=== PATIENT | female | born 1925 | race African-American/Black ===

== ENCOUNTER 2016-10-22 20:03 | Emergency (ER) | payer MEDICARE, BC, OTHER ==
[~2016-10-22] VITALS: Ht 154.9 cm; Wt 45.0 kg
[~2016-10-22 20:03] MED LIST: ACET325 PO; AGGR20025 PO; AMPI500 PO; CALC1TAB26 PO; CARB0.5D16 EACH EYE; CARB25TA PO; DOCU1CAP39 PO; ENAB15TA PO; GLIP-157 PO; LISI-363 PO; MELA0.02 PO; METF500 PO; METO100T PO; METO50TA PO; MILKSUS5 PO; NIFE90 PO; NITR.4T TD
[2016-10-22 20:11] VITALS: BP 144/64; PULSE 82; TEMP 98.4; O2SAT 98
[2016-10-22] MEDS ORDERED: [UNRECOGNIZED DRUG - CODE] PO (20:47)
[2016-10-22] MEDS ORDERED: MELA5TAB15 PO (20:47)
[2016-10-22] MEDS ORDERED: AGGR20025 PO (20:47)
[2016-10-22] MEDS ORDERED: METO50TA PO (20:47)
[2016-10-22] MEDS ORDERED: METO100T PO (20:47)
[2016-10-22] MEDS ORDERED: METF850T PO (20:47)
[2016-10-22] MEDS ORDERED: GLIP5TAB8 PO (20:47)
[2016-10-22] MEDS ORDERED: CALC1TAB87 PO (20:47)
[2016-10-22] MEDS ORDERED: CARB25TA9 PO (20:47)
[2016-10-22] MEDS ORDERED: NIFE1TAB PO (20:47)
[2016-10-22] MEDS ORDERED: MILKSUS PO (20:47)
[2016-10-22] MEDS ORDERED: DOCU100C PO (20:47)
[2016-10-22] MEDS ORDERED: FENT12DI T-DERMAL (20:47)
[2016-10-22] MEDS ORDERED: TYLE325T PO (20:47)
--- NOTE | 2016-10-22 21:14 | PD ---
HPI Chief Complaint: Fall Time Seen by Provider: 20:42 Travel History International Travel<30 days: No Contact w/Intl Traveler<30days: No Traveled to known affect area: No History of Present Illness HPI 89-year-old Jessa female with history of end-stage Parkinson's, is brought into the ED via EMS status post fall from her bed landing on her left side. Patient is nonambulatory. She denies pain at this time. Patient is here with her daughter who requests a full workup ensure no fractures or other issue. Patient is not a DNR. Patient does not recall the fall, it was unwitnessed. She has no history of diabetes but was reported to have a blood sugar of over 400 via EMS. 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 She lives at a care home. She was found on the floor with a pillow between her legs. She normally sleeps with a pillow between her legs. She has no complaints of pain currently. She has allergies to codeine. PFSH Past Medical History Arthritis: Yes (OSTEOARTHRITIS ) Anxiety: Yes Depression: Yes Cardiac Catheterization: Yes Cardiovascular Problems: Yes Coronary Artery Disease: Yes Dementia: Yes Diabetes: Yes (TYPE 2) Patient Takes Glucophage: Yes (GLIPIZIDE ) Gastrointestinal Disorders: Yes (CONSTIPATION ) GERD: Yes Genitourinary: Yes (UTI , CHRONIC KIDNEY DSE ) Hypertension: Yes Medical other: Yes (DYSPHAGIA, HX OF FALLS, ARTHROPATHY ) Musculoskeletal: Yes (MYSCLE WEAKNESS) Neurologic: Yes Parkinson's Disease: Yes Psychiatric: Yes Tetanus Vaccination: > 5 Years Influenza Vaccination: No Menopausal: Yes Past Surgical History Cardiac Surgery: Yes Coronary Artery Bypass Graft: Yes Social History Alcohol Use: No Tobacco Use: No Substance Use: No Allergies-Medications (Allergen,Severity, Reaction): Coded Allergies: codeine (Unverified Allergy, Unknown, 10/12/16) Reported Meds & Prescriptions Reported Meds & Active Scripts Active Reported Nifedipine ER 24 HR (Nifedipine) 90 Mg Tab 90 Mg PO DAILY Metoprolol Tartrate 50 Mg Tab 50 Mg PO DAILY Metoprolol Tartrate 100 Mg Tab 100 Mg PO HS Metformin (Metformin HCl) 850 Mg Tab 850 Mg PO TIDPC With meals Melatonin 5 Mg Tab 3 Mg PO HS Milk of Magnesia Liq (Magnesium Hydroxide) 400 Mg/5 Ml Susp 40 Ml PO Q6H PRN Glipizide 5 Mg Tab 5 Mg PO DAILY Take 30 minutes before a meal Fentanyl Patch 72 HR (Fentanyl) 12 Mcg/Hr Patch 1 Patch T-DERMAL Q72H Remove old patch when new one placed. Docusate Sodium 100 Mg Cap 100 Mg PO HS Darifenacin ER 24 HR 15 Mg Tab 15 Mg PO DAILY Carbidopa-Levodopa 25-100 Mg Tab 1 Tab PO Q6HR Calcium 600 with Vitamin D (Calcium Carbonate-Cholecalciferol) 600-400 mg-Unit Tab 1 Tab PO DAILY Aggrenox (Dipyridamole/Aspirin) 200-25 Mg Cap 1 Cap PO DAILY Tylenol (Acetaminophen) 325 Mg Tab 325 Mg PO Q5H Review of Systems ROS Limitations: Clinical Condition Except as stated in HPI: all other systems reviewed are Neg General / Constitutional: No: Fever Eyes: No: Visual changes HENT: No: Headaches Cardiovascular: No: Chest Pain or Discomfort Respiratory: No: Shortness of Breath Gastrointestinal: No: Abdominal Pain Genitourinary: No: Dysuria Musculoskeletal: No: Pain Skin: No Rash Neurologic: No: Weakness Psychiatric: No: Depression Endocrine: No: Polydipsia Hematologic/Lymphatic: No: Easy Bruising Physical Exam Exam Limitations: Clinical Condition Narrative GENERAL: Patient appears parkinsonian with slow response and she has chronic contractions of upper and lower extremities. Patient is alert and responsive to verbal stimuli. SKIN: Warm and dry. Poor color. Poor turgor with tenting noted. Patient is noted to have a 4 cm diameter grade 2 decubitus ulcer to the coccyx region without significant signs of infection currently. Patient also has a 3 cm diameter grade 2 pressure ulcer to the right posterior lateral heel. Dressing is replaced. HEAD: Normocephalic. No signs of trauma. Nontender. EYES: Pupils equal and round. No scleral icterus. No injection or drainage. ENT: No nasal bleeding or discharge. Mucous membranes pink and dry.. NECK: Trachea midline. No JVD. No bony tenderness to palpation. Range of motion is limited secondary Parkinson's. CT ordered. CARDIOVASCULAR: Regular rate and rhythm. RESPIRATORY: No accessory muscle use. Clear to auscultation. Breath sounds equal bilaterally. No pain with palpation of the chest wall. GASTROINTESTINAL: Abdomen soft, non-tender, nondistended. Hepatic and splenic margins not palpable. MUSCULOSKELETAL: Extremities without clubbing, cyanosis, or edema. No obvious deformities. Patient has chronic contractures secondary to her Parkinson's. NEUROLOGICAL: Awake and alert. No obvious cranial nerve deficits. Motor grossly within normal limits. Normal PSYCHIATRIC: Appropriate mood and affect; insight and judgment normal. Data Data Last Documented VS Vital Signs Date Time Temp Pulse Resp B/P (MAP) Pulse Ox O2 Delivery O2 Flow Rate FiO2 10/22/16 20:11 98.4 82 144/64 (90) 98 Orders Orders Hip, Uni(Ap&Lat) W Ap Pelvis (10/22/16 21:02) Shoulder, Limited(2vws) (10/22/16 21:02) Chest, Single Ap (10/22/16 21:02) Ct Brain W/O Iv Contrast(Rout) (10/22/16 21:02) Ct Cerv Spine W/O Contrast (10/22/16 21:02) Complete Blood Count With Diff (10/22/16 21:02) Comprehensive Metabolic Panel (10/22/16 21:02) Prothrombin Time / Inr (Pt) (10/22/16 21:02) Act Partial Throm Time (Ptt) (10/22/16 21:02) Urinalysis - C+S If Indicated (10/22/16 21:02) Iv Access Insert/Monitor (10/22/16 21:02) Ecg Monitoring (10/22/16 21:02) Oximetry (10/22/16 21:02) Sodium Chloride 0.9% Flush (Ns Flush) (10/22/16 21:15) Electrocardiogram (10/22/16 21:02) Sodium Chlorid 0.9% 500 Ml Inj (Ns 500 M (10/22/16 21:15) Cath For Specimen (10/22/16 21:02) Blood Glucose (10/22/16 21:15) Labs Laboratory Tests Test 10/22/16 22:10 White Blood Count 8.1 TH/MM3 Red Blood Count 3.46 MIL/MM3 Hemoglobin 9.8 GM/DL Hematocrit 30.5 % Mean Corpuscular Volume 88.2 FL Mean Corpuscular Hemoglobin 28.2 PG Mean Corpuscular Hemoglobin Concent 32.0 % Red Cell Distribution Width 14.0 % Platelet Count 322 TH/MM3 Mean Platelet Volume 7.0 FL Neutrophils (%) (Auto) 62.8 % Lymphocytes (%) (Auto) 27.9 % Monocytes (%) (Auto) 8.4 % Eosinophils (%) (Auto) 0.6 % Basophils (%) (Auto) 0.3 % Neutrophils # (Auto) 5.1 TH/MM3 Lymphocytes # (Auto) 2.3 TH/MM3 Monocytes # (Auto) 0.7 TH/MM3 Eosinophils # (Auto) 0.0 TH/MM3 Basophils # (Auto) 0.0 TH/MM3 CBC Comment DIFF FINAL Differential Comment Blood Urea Nitrogen 24 MG/DL Creatinine 1.01 MG/DL Random Glucose 329 MG/DL Albumin 2.0 GM/DL Calcium Level 8.4 MG/DL Aspartate Amino Transf (AST/SGOT) 6 U/L Alanine Aminotransferase (ALT/SGPT) LESS THAN 6 U/L Sodium Level 138 MEQ/L Potassium Level 4.4 MEQ/L Chloride Level 102 MEQ/L Carbon Dioxide Level 28.8 MEQ/L Anion Gap 7 MEQ/L Estimat Glomerular Filtration Rate 62 ML/MIN MDM Medical Decision Making Medical Screen Exam Complete: Yes Emergency Medical Condition: Yes Medical Record Reviewed: Yes Differential Diagnosis Fall from bed. Parkinson's. Dehydration. Electrolyte imbalance. Possible fracture. Narrative Course Patient appears medically stable at time of exam. I discussed with the patient's daughter what she was looking for for treatment, and she would like everything done. Labs ordered including CBC, CMP, urinalysis. EKG is ordered as well as CT head, cervical spine, X-rays of the left shoulder, chest, and left hip and pelvis are ordered. IV access is obtained patient is given 500 mL normal saline bolus. Head CT is negative. X-ray of the chest, left shoulder, left hip and pelvis are all negative for acute findings per radiologist. Cervical spine CT is negative for acute findings per radiologist. 2300 hrs. patient's labs are still pending. Care of the patient is taken over by Dr. Villalpando, who will determine the final disposition of the patient. Condition: Stable Spencer Mckenna Oct 22, 2016 21:14
[2016-10-22] MEDS ORDERED: SODIUM CHLORIDE 0.9% FLUSH 10 ML FLUSH IV FLUSH PRN (21:15)
[2016-10-22] MEDS ORDERED: SODIUM CHLORID 0.9% 500 ML INJ 500 ML IV ONE (21:15)
--- NOTE | 2016-10-22 22:01 | RADRPT ---
EXAM DATE/TIME: 10/22/2016 21:46 [facility] COMPARISON: CT BRAIN W/O CONTRAST, October 05, 2015, 18:36. INDICATIONS : Patient fell out of bed, hitting head. RADIATION DOSE: 56.77 CTDIvol (mGy) MEDICAL HISTORY : Cardiovascular disease. Hypertension. Diabetes mellitus type 1.Parkinson's SURGICAL HISTORY : CABG ENCOUNTER: Initial ACUITY: 1 day PAIN SCALE: 5/10 LOCATION: cranial TECHNIQUE: Multiple contiguous axial images were obtained of the head. Using automated exposure control and adj ustment of the mA and/or kV according to patient size, radiation dose was kept as low as reasonably a chievable to obtain optimal diagnostic quality images. DICOM format image data is available electro nically for review and comparison. FINDINGS: CEREBRUM: The ventricles are normal for age. No evidence of midline shift, mass lesion, hemorrhage or acute in farction. No extra-axial fluid collections are seen. Chronic low attenuation again seen in the periv entricular white matter. There is atrophy. POSTERIOR FOSSA: The cerebellum and brainstem are intact. The 4th ventricle is midline. The cerebellopontine angle i s unremarkable. EXTRACRANIAL: The visualized portion of the orbits is intact. SKULL: The calvaria is intact. No evidence of skull fracture. CONCLUSION: No bleed or other acute intracranial abnormality. Ced Metcalf MD on October 22, 2016 at 21:59 Board Certified Radiologist. This report was verified electronically.
--- NOTE | 2016-10-22 22:10 | RADRPT ---
EXAM DATE/TIME: 10/22/2016 21:28 [facility] COMPARISON: No previous studies available for comparison. INDICATIONS : Left hip pain after patient fell from bed MEDICAL HISTORY : Multiple fractures to left hip and femur SURGICAL HISTORY : ORIF left hip and femur ENCOUNTER: Initial ACUITY: 1 day PAIN SCORE: 8/10 LOCATION: Left entire hip FINDINGS: Examination of the left hip was performed with AP Pelvis. The primary and secondary trabecular patte rn of the femoral neck is intact. The hip joint is of normal width without significant sclerosis or bony hypertrophy. The acetabulum is grossly intact. The patient has trochanteric screw and lateral plate of the proximal femur with multiple cerclage wir es. There is an intramedullary lorelei with for the rest of the femur. Old intertrochanteric and mid shaf t fractures of the left femur has healed in near-anatomic alignment. There is calcification of the visualized arteries. There is mild bilateral hip osteoarthritis. CONCLUSION: Old fractures and surgery of the left femur. No acute pelvic or femoral fracture. Ced Metcalf MD on October 22, 2016 at 22:06 Board Certified Radiologist. This report was verified electronically.
--- NOTE | 2016-10-22 22:11 | RADRPT ---
EXAM DATE/TIME: 10/22/2016 21:35 [facility] COMPARISON: No previous studies available for comparison. INDICATIONS : Left shoulder pain after patient fell out of bed today MEDICAL HISTORY : None. SURGICAL HISTORY : None. ENCOUNTER: Initial ACUITY: 1 day PAIN SCORE: 5/10 LOCATION: Left shoulder FINDINGS: There is no fracture or subluxation seen of the left shoulder. There is severe glenohumeral joint ost eoarthritis. Mild to moderate osteoarthritis seen of the acromioclavicular joint. Radiographic appearance of the soft tissues within normal limits. CONCLUSION: Intact left shoulder. Severe glenohumeral joint osteoarthritis. Ced Metcalf MD on October 22, 2016 at 22:08 Board Certified Radiologist. This report was verified electronically.
--- NOTE | 2016-10-22 22:12 | RADRPT ---
EXAM DATE/TIME: 10/22/2016 21:46 [facility] COMPARISON: CHEST SINGLE AP, October 05, 2015, 17:41. INDICATIONS : Trauma to chest after patient fell out of bed today MEDICAL HISTORY : None. SURGICAL HISTORY : None. ENCOUNTER: Initial ACUITY: 1 day PAIN SCORE: 0/10 LOCATION: Bilateral chest FINDINGS: A single view of the chest demonstrates the lungs to be symmetrically aerated without evidence of mas s, infiltrate or effusion. The cardiomediastinal contours are unremarkable. Osseous structures are intact. CONCLUSION: No evidence of acute cardiopulmonary disease. Ced Metcalf MD on October 22, 2016 at 22:09 Board Certified Radiologist. This report was verified electronically.
--- NOTE | 2016-10-22 22:16 | RADRPT ---
EXAM DATE/TIME: 10/22/2016 21:47 [facility] COMPARISON: No previous studies available for comparison. INDICATIONS : Patient fell out of bed. RADIATION DOSE: 30.12 CTDIvol (mGy) MEDICAL HISTORY : Cardiovascular disease. Hypertension. Diabetes mellitus type 1.Parkinson's SURGICAL HISTORY : CABG ENCOUNTER: Initial ACUITY: 1 day PAIN SCALE: 5/10 LOCATION: neck TECHNIQUE: Volumetric scanning of the cervical spine was performed. Multiplanar reconstructions in the sagittal, coronal and oblique axial planes were performed. Using automated exposure control and adjustment o f the mA and/or kV according to patient size, radiation dose was kept as low as reasonably achievable to obtain optimal diagnostic quality images. DICOM format image data is available electronically f or review and comparison. FINDINGS: Cervical spine is intact. Incidentally seen developmental discontinuity posteriorly of the C1 ring. T here are no subluxations. Vertebral bodies have normal height. Moderate osteoarthritis seen anteriorly at C1/C2. Broad posterior disc osteophyte complexes with moderate bilateral uncovertebral and facet osteoarthri tis seen at C3/C4-C6/C7. Disc space narrowing is mild at C3/C4 and C4/C5, severe at C5/C6 and C6/C7. No prevertebral soft tissue swelling. Enlarged thyroid with numerous heterogeneous nodules seen especially left lobe. Scattered macrocalcif ications are noted. CONCLUSION: 1. No fracture or subluxation of the cervical spine. 2. Multilevel degenerative changes as above. 3. 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 Outpatient thyroid ultrasound i s recommended. Ced Metcalf MD on October 22, 2016 at 22:10 Board Certified Radiologist. This report was verified electronically.
[2016-10-22 22:49] LABS: ALT (GPT) LESS THAN 6 U/L (10-53); ANION GAP 7 MEQ/L (5-15); AST (GOT) 6 U/L (15-37); AUTOMATED NEUTROPHIL # 5.1 TH/MM3 (1.8-7.7); BASOPHIL % 0.3 % (0.0-2.0); BICARBONATE 28.8 MEQ/L (21.0-32.0); BLOOD UREA NITROGEN 24 MG/DL (7-18); CHLORIDE 102 MEQ/L (98-107); EOSINOPHIL % 0.6 % (0.0-4.0); GLOMERULAR FILTRATION RATE 62 ML/MIN (>89); HEMATOCRIT 30.5 % (35.0-46.0); HEMO FLAGS DIFF FINAL; LYMPH % 27.9 % (9.0-44.0); LYMPHOCYTE # 2.3 TH/MM3 (1.0-4.8); MEAN CELL VOLUME 88.2 FL (80.0-100.0); MEAN CORPUSCULAR HEMOGLOBIN 28.2 PG (27.0-34.0); MONO % 8.4 % (0.0-8.0); NEUT % 62.8 % (16.0-70.0); PLATELET COUNT 322 TH/MM3 (150-450); POTASSIUM 4.4 MEQ/L (3.5-5.1); RED BLOOD COUNT 3.46 MIL/MM3 (4.00-5.30); SODIUM (NA) 138 MEQ/L (136-145); WHITE BLOOD COUNT 8.1 TH/MM3 (4.0-11.0)
[2016-10-22 22:51] LABS: ALKALINE PHOSPHATASE 73 U/L (45-117); TOTAL BILIRUBIN ADULT 0.2 MG/DL (0.2-1.0)
[2016-10-22 22:53] LABS: APTT (PATIENT) 25.9 SEC (24.3-30.1); PROTHROMBIN TIME - PATIENT 10.7 SEC (9.8-11.6)
[2016-10-23] LABS: BACTERIA, URINE MANY /hpf; BLOOD, URINE SMALL (NEG); COMMENT (UR) CULTURE INDICATED; CULTURE IF INDICATED CULTURE INDICATED; GLUCOSE,URINE 300 mg/dL (NEG); KETONE, URINE NEG (NEG); NITRITE,URINE NEG (NEG); PH, URINE 7.5 (5.0-8.5); URINE COLOR YELLOW (YELLW/STRAW)
[2016-10-23] MEDS ORDERED: BACT800T5 PO (00:21)
--- NOTE | 2016-10-23 00:21 | PD ---
Physical Exam Narrative Patient was seen by my insurance claims assistant and signed out to me. Data Data Last Documented VS Vital Signs Date Time Temp Pulse Resp B/P (MAP) Pulse Ox O2 Delivery O2 Flow Rate FiO2 10/22/16 20:11 98.4 82 144/64 (90) 98 Orders Orders Hip, Uni(Ap&Lat) W Ap Pelvis (10/22/16 21:02) Shoulder, Limited(2vws) (10/22/16 21:02) Chest, Single Ap (10/22/16 21:02) Ct Brain W/O Iv Contrast(Rout) (10/22/16 21:02) Ct Cerv Spine W/O Contrast (10/22/16 21:02) Complete Blood Count With Diff (10/22/16 21:02) Comprehensive Metabolic Panel (10/22/16 21:02) Prothrombin Time / Inr (Pt) (10/22/16 21:02) Act Partial Throm Time (Ptt) (10/22/16 21:02) Urinalysis - C+S If Indicated (10/22/16 21:02) Iv Access Insert/Monitor (10/22/16 21:02) Ecg Monitoring (10/22/16 21:02) Oximetry (10/22/16 21:02) Sodium Chloride 0.9% Flush (Ns Flush) (10/22/16 21:15) Electrocardiogram (10/22/16 21:02) Sodium Chlorid 0.9% 500 Ml Inj (Ns 500 M (10/22/16 21:15) Cath For Specimen (10/22/16 21:02) Blood Glucose (10/22/16 21:15) Urine Culture (10/22/16 23:26) Labs Laboratory Tests Test 10/22/16 22:10 10/22/16 23:26 White Blood Count 8.1 TH/MM3 Red Blood Count 3.46 MIL/MM3 Hemoglobin 9.8 GM/DL Hematocrit 30.5 % Mean Corpuscular Volume 88.2 FL Mean Corpuscular Hemoglobin 28.2 PG Mean Corpuscular Hemoglobin Concent 32.0 % Red Cell Distribution Width 14.0 % Platelet Count 322 TH/MM3 Mean Platelet Volume 7.0 FL Neutrophils (%) (Auto) 62.8 % Lymphocytes (%) (Auto) 27.9 % Monocytes (%) (Auto) 8.4 % Eosinophils (%) (Auto) 0.6 % Basophils (%) (Auto) 0.3 % Neutrophils # (Auto) 5.1 TH/MM3 Lymphocytes # (Auto) 2.3 TH/MM3 Monocytes # (Auto) 0.7 TH/MM3 Eosinophils # (Auto) 0.0 TH/MM3 Basophils # (Auto) 0.0 TH/MM3 CBC Comment DIFF FINAL Differential Comment Prothrombin Time 10.7 SEC Prothromb Time International Ratio 1.0 RATIO Activated Partial Thromboplast Time 25.9 SEC Blood Urea Nitrogen 24 MG/DL Creatinine 1.01 MG/DL Random Glucose 329 MG/DL Total Protein 6.9 GM/DL Albumin 2.0 GM/DL Calcium Level 8.4 MG/DL Alkaline Phosphatase 73 U/L Aspartate Amino Transf (AST/SGOT) 6 U/L Alanine Aminotransferase (ALT/SGPT) LESS THAN 6 U/L Total Bilirubin 0.2 MG/DL Sodium Level 138 MEQ/L Potassium Level 4.4 MEQ/L Chloride Level 102 MEQ/L Carbon Dioxide Level 28.8 MEQ/L Anion Gap 7 MEQ/L Estimat Glomerular Filtration Rate 62 ML/MIN Urine Color YELLOW Urine Turbidity CLOUDY Urine pH 7.5 Urine Specific [place] 1.017 Urine Protein 300 mg/dL Urine Glucose (UA) 300 mg/dL Urine Ketones NEG mg/dL Urine Occult Blood SMALL Urine Nitrite NEG Urine Bilirubin NEG Urine Urobilinogen 4.0 MG/DL Urine Leukocyte Esterase LARGE Urine RBC 13 /hpf Urine WBC /hpf Urine WBC Clumps FEW Urine Amorphous Sediment RARE Urine Bacteria MANY /hpf Microscopic Urinalysis Comment CULTURE INDICATED MDM Supervised Visit with RUDY: Yes Interpretation(s) 12:[address] scan of the cervical spine, brain, chest x-ray, x-ray of the hip and shoulder show no acute bony injury. CBC WBC 8.1. Hemoglobin 9.8 hematocrit 30.5. BUN 24. Creatinine 1.01. GFR 62. Glucose 329. UA positive with WBC RBC and bacteria. Narrative Course Normal saline solution 500 cc IV bolus. Rocephin 1 g IV given. Diagnosis Primary Impression: UTI (urinary tract infection) Qualified Codes: N30.00 - Acute cystitis without hematuria Additional Impression: Multiple contusions Patient Instructions: General Instructions Additional Instruction: Take medications as directed. Follow-up with personal physician. Head trauma instructions given. Return if worse. Med/Other Pt SpecificInfo: Prescription(s) given Scripts Sulfamethoxazole-Trimethoprim (Bactrim DS) 800-160 Mg Tab 1 TAB PO BID for Infection, #14 TAB 0 Refills Prov: Dillon Villalpando MD 10/23/16 Disposition: 03 DISCHARGE TO SNF Condition: Stable Dillon Villalpando MD Oct 23, 2016 00:21
[2016-10-23] MEDS ORDERED: cefTRIAXone INJ 1,000 MG in SODIUM CHLORIDE 0.9% INJ 100 ML IV ONE (00:30)
[2016-10-23 04:00] VITALS: BP 178/79; PULSE 75; RESP 14; O2SAT 96
--- NOTE | 2016-10-23 18:22 | EKG ---
Date Performed: 10/22/2016 Time Performed: 22:49:55 PTAGE: 89 years EKG: Sinus rhythm RIGHT BUNDLE BRANCH BLOCK POSSIBLE SEPTAL MYOCARDIAL INFARCTION ABNORMAL ECG NO PREVIOUS TRACING DOCTOR: Deny Rogers Interpretating Date/Time 10/23/2016 18:21:18
== END 2016-10-23 12:50 ==
LOC: NEPC 20:03
DX: N39.0 Urinary tract infection, site not specified (principal); L89.152 Pressure ulcer of sacral region, stage 2; L89.612 Pressure ulcer of right heel, stage 2; E11.622 Type 2 diabetes mellitus with other skin ulcer; M25.552 Pain in left hip; M25.512 Pain in left shoulder; E04.2 Nontoxic multinodular goiter; I45.10 Unspecified right bundle-branch block; A49.8 Other bacterial infections of unspecified site
CPT/HCPCS: 70450; 71010; 72125; 73030; 73502; 80053; 81001; 85025; 85610; 85730; 87086; 93005; 96374; 99285; J0696; J7040; P9612